=== PATIENT | female | born 1970 | race Caucasian/White ===

== ENCOUNTER → 2016-10-07 | Outpatient (CLI) | payer BC ==
[~2016-10-07] MED LIST: ALL60
--- NOTE | 2016-10-07 14:53 | DIAGNOSTIC IMAGING REPORT ---
FLUOROSCOPICALLY GUIDED RIGHT HIP STEROID AND ANESTHETIC INJECTION CLINICAL HISTORY: Right hip pain. Degenerative arthritis COMPARISON STUDY: None FLUOROSCOPY TIME: 15 seconds. A single fluoroscopic spot images provided for interpretation. FINDINGS: A timeout was performed. The risks of the procedure were explained the patient and informed consent was obtained. Patient prepped and draped in sterile fashion. The skin was anesthetized 1% lidocaine. Under fluoroscopic guidance, 20-gauge spinal needle was introduced into the joint. Optiray 300 was injected to document intra-articular location of the needle. The patient was then injected with 8 cc of 0.5% bupivacaine and 2 cc of betamethasone. IMPRESSION: Successful fluoroscopically guided right hip injection. 8 cc of 0.5% lidocaine and 2 cc of betamethasone were instilled into the joint capsule. Electronically signed by: Nikhil Celaya M.D. 10/07/2016 2:52 PM Dictated Date/Time: 10/07/2016 2:50 PM
== END | disposition home or self-care (01) ==
LOC: C.RADBC 13:30
PROVIDERS: ATTEND Orthopaedic Surgery
DX: M16.11 Unilateral primary osteoarthritis, right hip (principal)